=== PATIENT | female | born 1975 | race African-American/Black ===

== ENCOUNTER 2017-01-13 19:52 | Emergency (ER) | payer SELFPAY ==
[~2017-01-13] VITALS: Ht 165.1 cm; Wt 77.0 kg
[~2017-01-13 19:52] MED LIST: AMOXICILLIN500 MG PO; AUGMENTIN875TAB PO; CEPHALEXIN500 M1 OR; CEPHALEXIN500 MG OR; EQ IBUPROFEN200 MG OR; FLEXERIL OR; FLEXERIL PO; FLONASE NASAL50 MCG; IBUPROFEN800 MG PO; PANCOF EXP OR; ROBITUSSIN AC10 ML OR; ROBITUSSIN AC10 ML PO; SPRINTEC 2828 DAY PO; TRIAMCINOLON0.11 EX; TYLENOL500 MG OR; ULTRAM50 M1 PO; ZPAK OR; [UNRECOGNIZED DRUG - REMARK]
[2017-01-13 20:51] LABS: INFLUENZA A NONE DETECTED (NONE DETECT); INFLUENZA B NONE DETECTED (NONE DETECT)
[2017-01-13] MEDS ORDERED: AMOXICILLIN500 MG PO (21:32)
[2017-01-13 21:52] VITALS: BP 120/81
== END 2017-01-13 21:53 | disposition home or self-care (01) | DRG 203 ==
LOC: ED 19:52
PROVIDERS: Emergency Medicine
DX: J40 Bronchitis, not specified as acute or chronic (principal); R09.81 Nasal congestion; R05 Cough; R50.9 Fever, unspecified

== ENCOUNTER 2017-03-24 10:47 | Emergency (ER) | payer BC ==
[~2017-03-24] VITALS: Ht 165.1 cm; Wt 76.8 kg
[2017-03-24 12:00] LABS: URINE BILIRUBIN - DIPSTICK NEGATIVE (NEGATIVE); URINE BLOOD DIPSTICK NEGATIVE (NEGATIVE); URINE CLARITY CLEAR; URINE COLOR YELLOW; URINE GLUCOSE - DIPSTICK NEGATIVE (NEGATIVE); URINE KETONE NEGATIVE (NEGATIVE); URINE LEUK ESTERASE NEGATIVE (NEGATIVE); URINE NITRITE - DIPSTICK NEGATIVE (Negative); URINE PH 5.5 (4.5-8.0); URINE PROTEIN - DIPSTICK NEGATIVE (NEG-TRACE); URINE SPECIFIC GRAVITY >=1.030; URINE UROBILINOGEN - DIPSTICK 0.2 E.U./dL (0.2)
[2017-03-24 12:13] LABS: BARBITURATES NEGATIVE (NEGATIVE); COCAINE NEGATIVE (NEGATIVE); METHADONE NEGATIVE (NEGATIVE); OXCYCODONE NEGATIVE (NEGATIVE); TETRAHYDROCANNABIONOL NEGATIVE (NEGATIVE); TRICYLIC ANTIDEPRESSANTS NEGATIVE (NEGATIVE)
[2017-03-24 12:20] LABS: ALBUMIN 4.4 g/dL (3.2-5.0); ALKALINE PHOSPHATASE 63 u/l (38-126); ANION GAP 14 (6-22 (CALC)); BILIRUBIN, TOTAL 0.5 mg/dL (0.0-1.4); BUN 16 mg/dL (7-17); BUN/CREATININE RATIO 20 (12-20 (CALC)); CALCIUM 9.3 mg/dL (8.4-10.2); CARBON DIOXIDE 26 mmol/l (22-30); CHLORIDE 103 mmol/l (95-108); CREATININE 0.8 mg/dL (0.5-1.0); GFR > 60 ML/MIN (>=60 (CALC)); GFR FOR AFR.AMER. > 60 ML/MIN (>=60 (CALC)); GLUCOSE 109 mg/dL (65-105); POTASSIUM 4.3 mmol/l (3.5-5.1); SGOT/AST 20 u/l (14-36); SGPT/ALT 34 u/l (9-52); SODIUM 139 mmol/l (137-146); TOTAL PROTEIN 7.8 g/dL (6.3-8.2)
[2017-03-24 12:23] LABS: HEMATOCRIT 38.5 % (37.0-47.0); HEMOGLOBIN 12.6 g/dl (12.0-16.0); IMMATURE GRANULOCYTES 0.3 % (0.0-1.0); MEAN CELL VOLUME 85.9 fL CALC (80.0-100.0); MEAN CORPUSCULAR HGB 28.1 pG CALC (26.0-32.0); MEAN CORPUSCULAR HGB CONC 32.7 g/L CALC (32.0-36.0); NEUT# 6.63 thou/uL (2.00-7.15); RED BLOOD COUNT 4.48 mill/uL (4.20-5.60); RED CELL DISTRI WIDTH 14.3 % (11.5-15.5)
[2017-03-24 13:01] VITALS: BP 113/84
== END 2017-03-24 13:11 | disposition home or self-care (01) | DRG 866 ==
LOC: ED 10:47
PROVIDERS: Emergency Medicine
DX: B34.9 Viral infection, unspecified (principal); R11.2 Nausea with vomiting, unspecified

== ENCOUNTER 2017-05-05 21:13 | Emergency (ER) | payer BC ==
[~2017-05-05] VITALS: Ht 165.1 cm; Wt 77.0 kg
[2017-05-05] MEDS ORDERED: AMOXICILLIN500 MG PO (22:43)
[2017-05-05 23:00] VITALS: BP 133/86
== END 2017-05-05 23:03 | disposition home or self-care (01) | DRG 153 ==
LOC: ED 21:13
DX: J02.0 Streptococcal pharyngitis (principal)

== ENCOUNTER 2017-07-28 08:45 | Emergency (ER) | payer BC ==
[~2017-07-28] VITALS: Ht 165.1 cm; Wt 80.0 kg
[2017-07-28] MEDS ORDERED: BENADRYL 50MG C50 MG PO (08:58)
[2017-07-28] MEDS ORDERED: PREDNISONE50 MG PO (08:58)
[2017-07-28] MEDS ORDERED: KEFLEX500 MG PO (08:58)
[2017-07-28 09:02] VITALS: BP 126/77
== END 2017-07-28 09:04 | disposition home or self-care (01) | DRG 607 ==
LOC: ED 08:45
DX: L73.9 Follicular disorder, unspecified (principal)

== ENCOUNTER 2018-09-23 11:47 | Emergency (ER) | payer SELFPAY ==
[~2018-09-23] VITALS: Ht 165.1 cm; Wt 79.0 kg
[~2018-09-23 11:47] MED LIST changes: +BENADRYL 50MG C50 MG PO; +KEFLEX500 MG PO; +PREDNISONE50 MG PO
[2018-09-23] MEDS ORDERED: ZITHROMAX500 MG PO (12:38)
[2018-09-23 12:50] VITALS: BP 120/78
== END 2018-09-23 12:53 | disposition home or self-care (01) | DRG 153 ==
LOC: ED 11:47
DX: J06.9 Acute upper respiratory infection, unspecified (principal)

== ENCOUNTER 2019-06-07 18:09 | Emergency (ER) | payer BC ==
[~2019-06-07] VITALS: Ht 162.6 cm; Wt 78.0 kg
[~2019-06-07 18:09] MED LIST changes: +ZITHROMAX500 MG PO
[2019-06-07] MEDS ORDERED: AMOXICILLIN500 MG PO (18:40)
[2019-06-07 18:54] VITALS: BP 112/76
== END 2019-06-07 19:07 | disposition home or self-care (01) | DRG 153 ==
LOC: ED 18:09
DX: J02.9 Acute pharyngitis, unspecified (principal)